=== PATIENT | female | born 1970 | race African-American/Black ===

== ENCOUNTER 2020-05-16 09:24 | Emergency (ER) | payer BC ==
[2020-05-16 10:00] VITALS: BP 162/92; PULSE 99; TEMP 96.7; BMI 28.0
== END 2020-05-16 11:02 | disposition home or self-care (01) ==
LOC: JER 09:24
DX: U07.1 COVID-19 (principal); R06.02 Shortness of breath; F41.9 Anxiety disorder, unspecified
CPT/HCPCS: 71046-TC-FY; 99283-25

== ENCOUNTER 2020-05-30 16:38 | Emergency (ER) | payer BC ==
[2020-05-30 17:11] VITALS: BMI 28.0
[2020-05-30 18:15] LABS: BASO % 1.1 % (0-2.0); EOS % 1.4 % (0-4.5); HEMATOCRIT 29.4 % (32.4-45.2); HEMOGLOBIN 9.5 GM/dL (10.7-15.3); LYMPH % 15.9 % (8-40); MCHC 32.2 g/dl (32.0-36.0); MEAN CELL VOLUME 61.6 fl (80-96); MEAN PLT VOLUME 8.7 fl (7.5-11.1); MONO % 6.9 % (3.8-10.2); NEUT % 74.7 % (42.8-82.8); PLATELET COUNT 584 K/MM3 (134-434); RBC 4.78 M/mm3 (3.60-5.2); RDW 20.2 % (11.6-15.6); WHITE BLOOD COUNT 8.9 K/mm3 (4.0-10.0)
[2020-05-30 18:20] LABS: MCH 19.9 pg (25.7-33.7)
[2020-05-30 18:34] LABS: CHLORIDE 107 mmol/L (98-107); POTASSIUM 5.3 mmol/L (3.5-5.1); SODIUM 136 mmol/L (136-145)
[2020-05-30 18:36] LABS: CALCIUM 9.2 mg/dL (8.5-10.1)
[2020-05-30 18:37] LABS: ALBUMIN 3.7 g/dl (3.4-5.0); ANION GAP 4 MMOL/L (8-16); BLOOD UREA NITROGEN 11.7 mg/dL (7-18); CO2 25 mmol/L (21-32); GLUCOSE,RANDOM 100 mg/dL (74-106)
[2020-05-30 18:40] LABS: SGOT/AST 52 U/L (15-37); SGPT/ALT 19 U/L (13-61)
[2020-05-30 18:42] LABS: BILIRUBIN,TOTAL 0.3 mg/dL (0.2-1); TOT PROT 7.9 g/dl (6.4-8.2)
[2020-05-30 18:43] LABS: ALK PHOS 79 U/L (45-117)
[2020-05-30 19:31] VITALS: BP 170/88; PULSE 62; TEMP 98.4
[2020-05-30 20:54] LABS: MACROCYTOSIS 1+; PLATELET ESTIMATE INCREASED; TARGET CELLS 1+
== END 2020-05-30 19:32 | disposition home or self-care (01) ==
LOC: JER 16:38
DX: R00.2 Palpitations (principal); F41.9 Anxiety disorder, unspecified; R20.9 Unspecified disturbances of skin sensation
CPT/HCPCS: 36415; 71046-TC-FY; 80053; 82550; 82553; 84443; 84484; 85025; 93005; 93010; 99285-25

== ENCOUNTER 2020-06-04 00:09 | Emergency (ER) | payer BC ==
[2020-06-04 00:29] VITALS: TEMP 99.4; BMI 26.6
[2020-06-04 01:25] LABS: BASO % 1.1 % (0-2.0); EOS % 1.7 % (0-4.5); HEMATOCRIT 28.4 % (32.4-45.2); LYMPH % 22.7 % (8-40); MCHC 31.5 g/dl (32.0-36.0); MEAN CELL VOLUME 62.7 fl (80-96); MEAN PLT VOLUME 9.2 fl (7.5-11.1); MONO % 9.4 % (3.8-10.2); NEUT % 65.1 % (42.8-82.8); PLATELET COUNT 523 K/MM3 (134-434); RBC 4.53 M/mm3 (3.60-5.2); RDW 20.8 % (11.6-15.6); WHITE BLOOD COUNT 7.1 K/mm3 (4.0-10.0)
[2020-06-04 01:39] LABS: MCH 19.7 pg (25.7-33.7)
[2020-06-04 01:42] LABS: INR 1.15 (0.83-1.09); PROTHROMBIN TIME (PATIENT) 13.9 SEC (9.7-13.0)
[2020-06-04 01:43] LABS: CHLORIDE 109 mmol/L (98-107); SODIUM 140 mmol/L (136-145)
[2020-06-04 01:46] LABS: ANION GAP 7 MMOL/L (8-16); BLOOD UREA NITROGEN 9.4 mg/dL (7-18); CALCIUM 8.8 mg/dL (8.5-10.1); CO2 25 mmol/L (21-32); GLUCOSE,RANDOM 90 mg/dL (74-106)
[2020-06-04 01:49] LABS: BILIRUBIN,DIRECT 0.1 mg/dL (0.0-0.2); CREATININE 0.9 mg/dL (0.55-1.3); SGOT/AST 30 U/L (15-37); SGPT/ALT 21 U/L (13-61)
[2020-06-04 01:51] LABS: BILIRUBIN,TOTAL 0.4 mg/dL (0.2-1); TOT PROT 8.1 g/dl (6.4-8.2)
[2020-06-04 01:52] LABS: ALK PHOS 78 U/L (45-117)
[2020-06-04 01:55] LABS: LDH 190 U/L (84-246)
[2020-06-04 03:34] LABS: ANISOCYTOSIS 2+; MACROCYTOSIS 1+; PLATELET ESTIMATE INCREASED; TARGET CELLS 1+
[2020-06-04] MEDS ORDERED: METHOCARBAMOL 500 MG TABLET PO ONE (05:21)
[2020-06-04] MEDS ORDERED: IBUPROFEN 400 MG TABLET (FP) PO ONE ×2 (05:21→05:26)
[2020-06-04] MEDS ORDERED: METHOCARBAMOL 500 MG TABLET ONE (05:26)
[2020-06-04 06:23] VITALS: PULSE 84
[2020-06-04 06:27] VITALS: BP 142/82
== END 2020-06-04 06:32 | disposition home or self-care (01) ==
LOC: JER 00:09
DX: R07.9 Chest pain, unspecified (principal)
CPT/HCPCS: 36415; 71045-TC-FY; 80053; 82248; 82550; 82553; 82728; 83605; 83615; 83735; 84443; 84484; 85025; 85610; 85730; 86140; 93005; 93010; 99285-25; C9803; U0003

== ENCOUNTER 2020-06-21 19:49 | Emergency (ER) | payer BC ==
[2020-06-21 20:00] VITALS: TEMP 98.6; BMI 27.3
[2020-06-21] MEDS ORDERED: amLODIPine BESYLATE 10 MG TABLET (FP) PO ONE (22:34)
[2020-06-21] MEDS ORDERED: amLODIPine BESYLATE 5 MG TABLET (FP) ONE (22:35)
[2020-06-21 22:41] VITALS: PULSE 74
[2020-06-22 00:20] VITALS: BP 150/82
== END 2020-06-22 00:52 | disposition home or self-care (01) ==
LOC: JER 19:49
DX: I10 Essential (primary) hypertension (principal)
CPT/HCPCS: 99284-25